=== PATIENT | male | born 2000 | race Caucasian/White ===

== ENCOUNTER 2022-04-04 18:00 | Emergency (ER) | payer MEDICAID, SELFPAY ==
--- NOTE | ~2022-04-04 | XR_ITS ---
EXAMINATION: XR CHEST CLINICAL INFORMATION: Chest pain COMPARISON: None TECHNIQUE: 2 views of the chest were obtained. FINDINGS: No significant abnormality is noted involving the heart, lungs, mediastinum, bony thorax or soft tissues. XR/XR chest 2V IMPRESSION: Unremarkable examination.
[2022-04-04 18:09] VITALS: BP 126/63; BP 141/88; PULSE 60; PULSE 68; RESP 18; TEMP 37; O2SAT 98; BMI 33.0
--- NOTE | 2022-04-04 18:21 | ECG_ITS ---
Test Reason : chest pain Blood Pressure : / mmHG Vent. Rate : 068 BPM Atrial Rate : 068 BPM P-R Int : 146 ms QRS Dur : 086 ms QT Int : 350 ms P-R-T Axes : 042 027 024 degrees QTc Int : 372 ms Normal sinus rhythm with sinus arrhythmia Normal ECG No previous ECGs available Referred By: Leatha Marroquin Electronically Signed By:JOHN NARAYAN
--- NOTE | 2022-04-04 18:21 | ED_ITS ---
HPI - Chest Pain General Chief Complaint: Chest Pain Stated Complaint: chest pain Time Seen by Provider: 04/04/22 18:06 Source: patient and EMS Mode of arrival: EMS Limitations: no limitations History of Present Illness HPI narrative: 21-year-old male presents with substernal chest pain, states that it feels like a bubble inside of his chest. He was evaluated at urgent care earlier today and diagnosed with bronchitis. He was given prednisone to help with the inflammation. Patient does feel short of breath, feels like there is something sitting on his chest. Pain does not radiate, and he does not report any other symptoms. MD complaint: chest heaviness and chest discomfort Onset (ago): day(s) Timing of current episode: episodic Prior episodes: Yes Onset: during rest Pain location: substernal Pain radiation: none Severity: moderate Pain scale (0-10): 6 Quality: tightness Relieving factors: nothing Exacerbating factors: stress Context: recent illness Treatment prior to arrival: none Risk Factors Coronary artery disease risk factors: none Thoracic aortic dissection risk factors: none Related Data Previous Rx's Medication Instructions Recorded hydroxyzine HCl 25 mg tablet 25 mg PO TID PRN anxiety #20 tabs 04/04/22 omeprazole 20 mg capsule,delayed 20 mg PO DAILY 14 days #14 caps 04/04/22 release Allergies Allergy/AdvReac Type Severity Reaction Status Date / Time No Known Allergies Allergy Unverified 12/14/19 17:08 Review of Systems Review of Systems: Constitutional: No Fever, No Chills Cardiovascular: Positive Chest Pain, No SOB Respiratory: No Cough, No Dyspnea Gastrointestinal: No Nausea, No Vomiting, No Diarrhea, No abdominal Pain Genitourinary: No Dysuria, No Hematuria Musculoskeletal: No joint pain, No Myalgias, No Joint Swelling Skin: No Skin lacerations, No rash Neuro: No Weakness, No Numbness, No Paresthesias, No Loss of Consciousness, No Dizziness, No Headache Psych: Positive Anxiety/Panic, No Depression Yes all other systems are reviewed and are negative FOR[facility]LY [facility] Past Medical History Attestation statement: The following information was validated with the patient. Source: old records reviewed Social History Social History Advance Directives: No Advance Directives Information Provided: No Physical Exam Vital Signs: Vital Signs: Last Vital Signs Temp 98.6 F 01/07/23 18:09 Pulse 71 04/04/22 19:41 Resp 16 04/04/22 19:41 BP 123/60 04/04/22 19:41 Pulse Ox 96 04/04/22 19:41 O2 Del Method 04/04/22 18:09 BMI result Body Mass Index 33.0 Appearance: Alert. Oriented X3. No acute distress. Eyes: Pupils equal, round and reactive to light. ENT: Pharynx normal. Neck: Normal inspection. Neck supple. CVS: Normal heart rate and rhythm. Pulses normal. Respiratory: No respiratory distress. Breath sounds normal. Abdomen: Soft and nontender. Skin: Skin warm and dry. Normal skin color. Normal skin turgor. Extremities: No lower extremity edema. Gait well-balanced well coordinated. Neuro: No motor deficit. No sensory deficit. Cranial nerves 2-12 intact. Course Course Course Narrative: 21-year-old male presents via EMS for chest pain, feels like there is a bubble inside of his chest. Does state to have an anxiety problem, and has episodes of vomiting during these panic like anxiety attacks. He was diagnosed with bronchitis earlier today, and given prednisone, which he took the 1st dose several hours prior to arrival to the emergency department. Patient states that he has concerns because he does have a family history of cardiac disease. His grandfather at age 70, but he does not report any sudden a person's younger than 30 in his family. He is not immunocompromised, does not have any congenital heart defects, denies IVDA, and anabolic steroid use. He is not on any chemo therapeutics or hormone treatment. There is a low likelihood of PE, and ACS, will order lab values, chest x-ray, EKG and troponins. Workup is negative. He does have an elevated white count consistent with his diagnosis of bronchitis as well as taking prednisone. I did given Maalox which was effective. I did suggest taking medications for GERD, as well as following up with primary care physician for anxiety. I did give a prescription for hydroxyzine. Patient verbalized understanding of and agrees plan of care discharge home. Verbalized understanding of signs and symptoms indicating need for emergent intervention. Medications Administered Discontinued Medications Generic Name Dose Route Start Last Admin Trade Name Freq PRN Reason Stop Dose Admin Al Hydroxide/Mg Hydroxide 30 ml 04/04/22 18:32 04/04/22 18:50 Magnesium Hydrox/Alum Hydrox 30 Ml Oral.Susp PO 04/04/22 18:33 Not Given ONCE ONE Medical Decision Making Differential Diagnosis Differential Diagnoses: The differential diagnosis associated with the presentation includes ACS, pneumonia, anxiety, GERD Lab Data MDM Lab Attestation statement: I reviewed the patient's lab results. 04/04/22 18:48 04/04/22 18:48 Labs: Lab Results 04/04/22 04/04/22 04/04/22 Range/Units 18:48 18:48 18:48 WBC 14.1 H (4.8-10.8) X10*3/uL RBC 5.37 (4.60-5.80) X10*6/uL Hgb 15.6 (14.0-18.0) g/dl Hct 45.8 (42.0-52.0) % MCV 85.3 (80.0-98.0) fL MCH 29.1 (27.0-33.0) pg MCHC 34.1 (31.0-36.0) g/dl RDW 13.1 (11.0-16.0) % Plt Count 163 (160-400) X10*3/uL MPV 11.5 (9.4-12.4) fL Immature Gran % (Auto) 0.5 H (0.0-0.4) % Neut % (Auto) 91.5 H (45-73) % Lymph % (Auto) 6.6 L (20-40) % [place] % (Auto) 1.2 L (2-11) % Eos % (Auto) 0.1 (0-4) % Baso % (Auto) 0.1 (0-2) % Lymph # (Auto) 0.9 L (1.2-4.9) X10*3/uL [place] # (Auto) 0.2 (0.1-1.2) X10*3/uL Eos # (Auto) 0.0 (0.0-0.4) X10*3/uL Baso # (Auto) 0.0 (0.0-0.2) X10*3/uL Abs Immat Gran (auto) 0.07 H (0.00-0.03) X10*3/uL Absolute Neuts (auto) 12.9 H (2.0-8.3) x10*3/uL Absolute Nucleated RBC 0.000 (0.0-0.012) X10*3/uL Nucleated RBC % (auto) 0.0 (0.0-0.2) /100WBC Sodium 139 (135-145) mmol/L Potassium 4.2 (3.3-5.1) mmol/L Chloride 107 (96-108) mmol/L Carbon Dioxide 23 (22-29) mmol/L Anion Gap 13 (12-20) BUN 15 (9-16) mg/dL Creatinine 1.06 (0.5-1.4) mg/dL Estim Creat Clear Calc 134.4 Estimated GFR > 60 Random Glucose 112 (60-115) mg/dL Calcium 10.0 (8.4-10.2) mg/dL Troponin I High Sens < 3.5 (<3.5-35.0) ng/L Independent Interpretation I performed an independent interpretation of an: EKG and Plain X-Ray Interpretation: Vent. rate 68 BPM PA interval 146 ms QRS duration 86 ms QT/QTc 350/372 ms P-R-T axes 42 27 24 Normal sinus rhythm with sinus arrhythmia Normal ECG No previous ECGs available 04-APR-2022 18:25:36 Radiology Impression Discussion of test interpretation with radiology: I have reviewed the radiologist's reading. Radiologist Impression: CLINICAL INFORMATION: Chest pain COMPARISON: None TECHNIQUE: 2 views of the chest were obtained. FINDINGS: No significant abnormality is noted involving the heart, lungs, mediastinum, bony thorax or soft tissues. XR/XR chest 2V IMPRESSION: Unremarkable examination. Independent Historian Clinical information obtained from an independent historian. History obtained from or confirmed by: Parent External Record Review External record reviewed: Outpatient record Prescription Management I considered prescription management with: Other (Anxiolytics, H2 inhibitor) Discharge Plan Discharge Clinical Impression: Non-cardiac chest pain, Anxiety, Acid reflux Patient Disposition: Home, Self-Care Instructions: Gastroesophageal Reflux Disease (ED), Noncardiac Chest Pain (ED), Anxiety (ED) Additional Instructions: You were evaluated for noncardiac chest pain. The description of your chest pain is consistent with reflux disease. Please consider taking omeprazole once daily for 14 days. Your EKG was normal sinus rhythm. Your cardiac enzymes were 0, you do have an elevated white count of 14 which is consistent with your prior diagnosis that was given to you earlier today for bronchitis and your prescribed dose of prednisone. Please drink plenty of fluids. Your chest x-ray was normal. For anxiety, I prescribed hydroxyzine. Please take this medication as directed. Follow-up with primary care, I have referred you to Dr. Weiss on [address] in [facility]. Thank you for choosing this emergency department for evaluation. Please follow-up with primary care physician as needed. Return to the emergency department for any new, concerning, or worsening symptoms. Prescriptions: New hydroxyzine HCl 25 mg tablet 25 mg PO TID PRN (Reason: anxiety) Qty: 20 0RF omeprazole 20 mg capsule,delayed release(DR/EC) 20 mg PO DAILY 14 Days Qty: 14 0RF Referrals: Marquis Weiss MD [Physician] - 2 weeks (To establish primary care) Interventions: ED Discharge Assessment Last Done: 04/04/22 19:42 Discharge Date/Time: 04/04/22 19:43
[2022-04-04 18:54] LABS: Basophils Percent Auto 0.1 % (0-2); Eosinophils Percent Auto 0.1 % (0-4); Hematocrit 45.8 % (42.0-52.0); Hemoglobin 15.6 g/dl (14.0-18.0); Imm Gran Abs Auto 0.07 X10*3/uL (0.00-0.03); Imm Gran Pct Auto 0.5 % (0.0-0.4); Lymphocytes Absolute Auto 0.9 X10*3/uL (1.2-4.9); Lymphocytes Percent Auto 6.6 % (20-40); MANUAL DIFF FLAG NO; Mean Corpuscular HGB Conc 34.1 g/dl (31.0-36.0); Mean Corpuscular Hemoglobin 29.1 pg (27.0-33.0); Mean Corpuscular Volume 85.3 fL (80.0-98.0); Mean Platelet Volume 11.5 fL (9.4-12.4); Monocytes Absolute Auto 0.2 X10*3/uL (0.1-1.2); Monocytes Percent Auto 1.2 % (2-11); Neutrophils Absolute Auto 12.9 x10*3/uL (2.0-8.3); Neutrophils Percent Auto 91.5 % (45-73); Platelet Count 163 X10*3/uL (160-400); Red Blood Count 5.37 X10*6/uL (4.60-5.80); Red Cell Distribution Width 13.1 % (11.0-16.0); SCAN SMEAR FLAG 1; White Blood Count 14.1 X10*3/uL (4.8-10.8)
--- NOTE | 2022-04-04 18:58 | PC.NURSE ---
Pt returned to room from XR, no needs expressed at this time.
[2022-04-04 19:06] LABS: Anion Gap 13 (12-20); Blood Urea Nitrogen 15 mg/dL (9-16); Carbon Dioxide 23 mmol/L (22-29); Chloride 107 mmol/L (96-108); Creatinine Clr Calc Pharmacy 134.4; Estimated Glomerular Filt Rate > 60; Glucose Random 112 mg/dL (60-115); Potassium 4.2 mmol/L (3.3-5.1); Sodium 139 mmol/L (135-145)
[2022-04-04 19:15] LABS: Troponin-I High Sensitivity < 3.5 ng/L (<3.5-35.0)
[2022-04-04 19:41] VITALS: BP 123/60; PULSE 71; RESP 16; O2SAT 96
== END 2022-04-04 19:43 | disposition home or self-care (01) ==
PROVIDERS: Nurse Practitioner Family; Emergency Provider Emergency Medicine
DX: K21.9 Gastro-esophageal reflux disease without esophagitis (principal); F41.9 Anxiety disorder, unspecified; R07.89 Other chest pain
CPT/HCPCS: 36415; 71046; 80048; 84484; 85025; 93005; 99283

== ENCOUNTER 2022-12-27 13:21 | Emergency (ER) | payer OTHER, SELFPAY ==
--- NOTE | 2022-12-27 13:22 | ECG_ITS ---
Test Reason : CHEST PAIN Blood Pressure : / mmHG Vent. Rate : 065 BPM Atrial Rate : 065 BPM P-R Int : 140 ms QRS Dur : 090 ms QT Int : 358 ms P-R-T Axes : 043 033 021 degrees QTc Int : 372 ms Normal sinus rhythm with sinus arrhythmia Normal ECG When compared with ECG of 04-APR-2022 18:25, No significant change was found Referred By: Pam Pennington Electronically Signed By:LENA RAINEY
[2022-12-27 13:36] VITALS: BP 121/66; PULSE 62; RESP 18; TEMP 36.7; O2SAT 99; BMI 34.0
[2022-12-27 13:42] VITALS: PULSE 55
--- NOTE | 2022-12-27 13:55 | ED_ITS ---
HPI - Chest Pain General Chief Complaint: Chest Pain Stated Complaint: chest pain Time Seen by Provider: 12/27/22 13:36 Source: patient Mode of arrival: ambulatory Limitations: no limitations History of Present Illness HPI narrative: 22 year old male with pmhx significant for GERD, ADHD (not managed with medication) presenting to the ED today with a complaint of acute on chronic intermittent palpitations, chest pain and MAN x 1 year, worsening over the last few days. Admits to traveling [place] the country [place] a couple of months at onset of symptoms last year. States that his left-sided chest pain has been intermittent & his symptoms are brought on with exertion/ climbing stairs. He has been evaluated at multiple medical centers with unremarkable cardiac workups. Patient currently has an order for a Holter monitor from his PCP however has not scheduled an appointment. He is denying chest pain, palpitations and MAN at present. His only complaint is feeling fatigued. Patient's mother attributes this to his lack of sleep and busy schedule. Denies headache, fever, dizziness, cough, neck pain, N/V, abdominal pain, LE swelling/pain. Has been taking prescribed omeprazole for GERD without relief. Patient and patient's mother at bedside deny any sudden deaths in the family. No personal or familial history of cardiac conditions. Related Data Previous Rx's Medication Instructions Recorded hydroxyzine HCl 25 mg tablet 25 mg PO TID PRN anxiety #20 tabs 04/04/22 omeprazole 20 mg capsule,delayed 20 mg PO DAILY 14 days #14 caps 04/04/22 release Allergies Allergy/AdvReac Type Severity Reaction Status Date / Time No Known Allergies Allergy Verified 12/27/22 13:35 Review of Systems 2 Review of Systems: Constitutional: No fever, chills, fatigue, night sweats, weight changes ENT/Mouth: No ear pain, hearing loss, nasal congestion, sinus pain, rhinorrhea, sore throat Eyes: No eye pain, swelling, redness, vision changes, discharge Cardio: + chest pain, + palpitations, + MAN, No orthopnea, peripheral edema Pulm: No SOB, cough, sputum, wheezing, dyspnea, hemoptysis GI: No nausea, vomiting, hematemesis, abdominal pain, diarrhea, constipation, hematochezia, melena : No irregular bleeding, dysuria, frequency, urgency, hesitancy, hematuria, flank pain MSK: No back pain, neck pain, joint pain, myalgias Skin: No lesions, rashes Neuro: No weakness, numbness, paresthesias, LOC, dizziness, headache All other systems reviewed and are negative. [facility] Past Medical History Attestation statement: The following information was validated with the patient. Source: old records reviewed and nursing notes reviewed Social History Social History Alcohol intake: current Alcohol intake frequency: 0-2 drinks per day Smoked in Last 30 Days: No Use of substances other than those prescribed or required for medical reasons: No Advance Directives: No Advance Directives Information Provided: Yes Physical Exam 2 Vital Signs: Vital Signs: Last Vital Signs Temp 98.1 F 12/27/22 13:36 Pulse 62 12/27/22 13:36 Resp 18 12/27/22 13:36 BP 121/66 12/27/22 13:36 Pulse Ox 99 12/27/22 13:36 O2 Del Method Room Air 12/27/22 13:36 BMI result Body Mass Index 34.0 Vital signs are stable Const: General: cooperative, healthy appearing, comfortable, no acute distress, alert and awake Nutritional Appearance: overweight O rientation/consciousness: patient oriented x3 Limitations: no limitations HEENT: Head: Yes normal to inspection Ears: hearing grossly normal bilaterally General nose exam: Normal external nose present Mouth: Normal oral and palatal mucosa present Eyes: General: appearance normal, both eyes and all related structures P upils: Equal, round and reactive pupils present EOM: EOMs intact bilaterally Neck: Neck: Yes normal visual inspection, Yes full ROM, Yes no meningeal signs and Yes supple Thyroid: Thyroid normal Carotids: normal carotid upstroke Lymphatic: no lymphadenopathy noted Chest: Chest palpation & inspection: normal inspection of the chest, normal palpation of entire chest wall, no crepitus, no tenderness and No rash Resp: Effort & Inspection: normal respiratory effort, able to speak in complete sentences, no pursed lip breathing, no respiratory distress, no retractions, no tripod positioning, no use of accessory muscles and symmetric chest movement Auscultation: clear to auscultation bilaterally, no crackles, no rales, no rhonchi and no wheezes Cardio: Rate: regular rate Rhythm: regular rhythm Heart sounds: S1 normal heart sound present, S2 normal heart sound present, no gallops, no murmurs and no rubs Bruits: no abdominal aortic bruits Peripheral pulses: Peripheral pulses 2+ throughout GI: Inspection: Yes normal to inspection and No distended Palpation (GI): N o Abdominal aortic bruit present, Soft to palpation, nontender, no guarding, hepatosplenomegaly present, no pulsatile masses and no aortic enlargement A uscultation: normal bowel sounds Skin: General skin exam: no rashes or lesions noted Neuro: General: patient oriented x3, gait normal, moves all extremities and no meningeal signs Cranial nerves: Yes CN's II-XII intact bilaterally and Yes Equal, round and reactive pupils present Extrem: Other: Negative Homans sign bilaterally. General: Yes normal to inspection and Yes full ROM Course Course Course Narrative: 1508-- EKG showing NSR with a rate of 65 bpm, normal QT, no acute ischemic changes, unchanged when compared to priors. CBC without anemia or leukocytosis. Chemistry without acute electrolyte abnormalities requiring intervention. Lipase wnl. BNP wnl. COVID and influenza negative. 1600-- D-dimer negative. Coags within normal limits. TSH within normal limits. Urine toxicology negative. > discussed lab results with patient and his mother. As lab workup and EKG are unremarkable, I recommend patient go ahead with outpatient Holter monitor to evaluate for arrhythmia. This has been prescribed outpatient PCP and he states he will schedule an appointment for Holter monitor tomorrow morning. Patient not currently having chest pain, SOB or palpitations at present. Complaining of left pectoral soreness/tenderness. Tylenol ordered. At this time I feel comfortable discharging the patient home with Cardiology follow-up. [place] [facility] [place] been [place]. All questions answered at this time. Discussed strict return precautions. Patient and family agreeable with plan. Patient stable for discharge. Medical Decision Making Medical Decision Making MDM Narrative: 22 year old male with pmhx significant for GERD, ADHD (not managed with medication) presenting to the ED today with a complaint of acute on chronic intermittent palpitations, chest pain and dyspnea on exertion x 1 year, worsening over the last few days. VSS. Patient afebrile, not tachycardic or hypoxic. Clinical concern for arrhythmia vs cardiomyopathy. Clinical concern for anxiety vs ADHD vs GERD vs pancreatitis. Unlikely pericarditis, pericardial effusion, cardiac tamponade. Unlikely ACS however will order cardiac enzymes, EKG. Unlikely pulmonary embolism however will order D-dimer. Plan at this time is basic labs, EKG, UDS. Will re-evaluate need for CTA. Differential Diagnosis Differential Diagnoses: The differential diagnosis associated with the presentation includes As above. Admission/Observation Not indicated. Lab Data MDM Lab Attestation statement: I reviewed the patient's lab results. As above. 12/27/22 14:36 12/27/22 14:36 Labs: Lab Results 12/27/22 12/27/22 Range/Units 14:36 15:49 WBC 9.4 (4.8-10.8) X10*3/uL RBC 5.32 (4.60-5.80) X10*6/uL Hgb 16.0 (14.0-18.0) g/dl Hct 46.5 (42.0-52.0) % MCV 87.4 (80.0-98.0) fL MCH 30.1 (27.0-33.0) pg MCHC 34.4 (31.0-36.0) g/dl RDW 12.7 (11.0-16.0) % Plt Count 171 (160-400) X10*3/uL MPV 11.5 (9.4-12.4) fL Immature Gran % (Auto) 0.3 (0.0-0.4) % Neut % (Auto) 68.8 (45-73) % Lymph % (Auto) 22.0 (20-40) % [place] % (Auto) 8.2 (2-11) % Eos % (Auto) 0.5 (0-4) % Baso % (Auto) 0.2 (0-2) % Lymph # (Auto) 2.1 (1.2-4.9) X10*3/uL [place] # (Auto) 0.8 (0.1-1.2) X10*3/uL Eos # (Auto) 0.1 (0.0-0.4) X10*3/uL Baso # (Auto) 0.0 (0.0-0.2) X10*3/uL Abs Immat Gran (auto) 0.03 (0.00-0.03) X10*3/uL Absolute Neuts (auto) 6.5 (2.0-8.3) x10*3/uL Absolute Nucleated RBC 0.000 (0.0-0.012) X10*3/uL Nucleated RBC % (auto) 0.0 (0.0-0.2) /100WBC ESR 2 (0-15) MM/HR PT 13.3 (11.1-13.3) SEC INR 1.1 (0.9-1.1) D-Dimer High Sensitivty < 150 NG/ML Sodium 140 (135-145) mmol/L Potassium 4.2 (3.3-5.1) mmol/L Chloride 104 (96-108) mmol/L Carbon Dioxide 27 (22-29) mmol/L Anion Gap 13 (12-20) BUN 14 (9-16) mg/dL Creatinine 1.01 (0.5-1.4) mg/dL Estim Creat Clear Calc 137.7 Estimated GFR > 60 Random Glucose 94 (60-115) mg/dL Calcium 9.9 (8.4-10.2) mg/dL Magnesium 2.0 (1.6-2.6) mg/dL Total Bilirubin 0.5 (0.0-1.0) mg/dL AST 19 (5-37) U/L ALT 28 (0-40) U/L Alkaline Phosphatase 83 (39-117) U/L Troponin I High Sens < 2.7 (<3.5-35.0) ng/L C-Reactive Protein 0.31 (< or = 0.50) mg/dL B-Natriuretic Peptide 22 (<100) pg/mL Total Protein 7.5 (6.5-8.0) g/dL Albumin 4.5 (3.5-5.0) g/dL Lipase 15 (8-78) U/L TSH 0.86 (0.32-4.0) uIU/mL Urine Opiates Screen Not Detected (Not Detect) Urine Fentanyl Screen Not Detected (Not Detect) Ur Barbiturates Screen Not Detected (Not Detect) Ur Phencyclidine Scrn Not Detected (Not Detect) Ur Amphetamines Screen Not Detected (Not Detect) U Benzodiazepines Scrn Not Detected (Not Detect) Urine Cocaine Screen Not Detected (Not Detect) U Marijuana (THC) Screen Not Detected (Not Detect) COVID-19 ([place]) Negative (Negative) COVID-19 Clin Com See Note Influenza Type A (GABRIELLA) Negative (Negative) Influenza Type B (GABRIELLA) Negative (Negative) Influenza A & B Note See Note Independent Interpretation I performed an independent interpretation of an: EKG Interpretation: EKG with NSR with sinus arrhythmia, QT 358, no ischemic changes, normal EKG when compared to last on 04/04/22. Independent Historian Clinical information obtained from an independent historian. History obtained from or confirmed by: Parent (mother) and Other (significant other) External Record Review External record reviewed: Inpatient record, Office record, Outpatient record, Prior outpatient labs, Prior outpatient radiology, Primary care record, Outside ED record and Other Prescription Management I considered prescription management with: Pain Medication Chronic Conditions Patient?s care impacted by: Other (GERD, ADHD) Critical Care Time Critical Care Time Critical Care Time: No Discharge Plan Discharge Clinical Impression: Atypical chest pain Patient Disposition: Home, Self-Care Instructions: Chest Pain (DC), Chest Wall Pain (ED) Additional Instructions: Your lab work today was reassuring. Your thyroid levels are within normal limits. Your cardiac enzymes are within normal limits. The enzyme that we monitor for pulmonary embolism was negative. Your EKG was normal. 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 This warrants further workup outpatient. You have been provided a referral [place] [facility] [place]. Call them to make an appointment, they will not call you. You may take Tylenol and ibuprofen as needed for chest pain or discomfort. Make sure to rest and not over exert yourself. Please return to the emergency department if you develop new or worsening symptoms. In the case of emergency,. Prescriptions: No Action hydroxyzine HCl 25 mg tablet 25 mg PO TID PRN (Reason: anxiety) Qty: 20 0RF omeprazole 20 mg capsule,delayed release(DR/EC) 20 mg PO DAILY 14 Days Qty: 14 0RF Referrals: [facility] [place] [Provider Group] - 3 days Stand Alone Forms: Work/School Release Interventions: ED Discharge Assessment Last Done: 12/27/22 16:23
[2022-12-27 14:44] LABS: MANUAL DIFF FLAG NO
[2022-12-27 14:47] LABS: Basophils Percent Auto 0.2 % (0-2); Eosinophils Absolute Auto 0.1 X10*3/uL (0.0-0.4); Eosinophils Percent Auto 0.5 % (0-4); Hematocrit 46.5 % (42.0-52.0); Imm Gran Abs Auto 0.03 X10*3/uL (0.00-0.03); Imm Gran Pct Auto 0.3 % (0.0-0.4); Lymphocytes Absolute Auto 2.1 X10*3/uL (1.2-4.9); Mean Corpuscular HGB Conc 34.4 g/dl (31.0-36.0); Mean Corpuscular Hemoglobin 30.1 pg (27.0-33.0); Mean Corpuscular Volume 87.4 fL (80.0-98.0); Mean Platelet Volume 11.5 fL (9.4-12.4); Monocytes Absolute Auto 0.8 X10*3/uL (0.1-1.2); Monocytes Percent Auto 8.2 % (2-11); Neutrophils Absolute Auto 6.5 x10*3/uL (2.0-8.3); Neutrophils Percent Auto 68.8 % (45-73); Platelet Count 171 X10*3/uL (160-400); Red Blood Count 5.32 X10*6/uL (4.60-5.80); Red Cell Distribution Width 12.7 % (11.0-16.0); White Blood Count 9.4 X10*3/uL (4.8-10.8)
[2022-12-27 14:52] LABS: INTERNATIONAL NORM RATIO 1.1 (0.9-1.1); Prothrombin Time 13.3 SEC (11.1-13.3)
[2022-12-27 14:54] LABS: D Dimer High Sensitivity < 150 NG/ML
[2022-12-27 15:01] LABS: Alanine Aminotransferase 28 U/L (0-40); Albumin Level 4.5 g/dL (3.5-5.0); Alkaline Phosphatase 83 U/L (39-117); Anion Gap 13 (12-20); Aspartate Amino Transferase 19 U/L (5-37); Bilirubin Total 0.5 mg/dL (0.0-1.0); Blood Urea Nitrogen 14 mg/dL (9-16); C Reactive Protein 0.31 mg/dL (< or = 0.50); Calcium 9.9 mg/dL (8.4-10.2); Carbon Dioxide 27 mmol/L (22-29); Chloride 104 mmol/L (96-108); Creatinine Clr Calc Pharmacy 137.7; Estimated Glomerular Filt Rate > 60; Glucose Random 94 mg/dL (60-115); Lipase 15 U/L (8-78); Potassium 4.2 mmol/L (3.3-5.1); Sodium 140 mmol/L (135-145); Total Protein 7.5 g/dL (6.5-8.0)
[2022-12-27 15:07] LABS: B Type Natriuretic Peptide 22 pg/mL (<100); COVID-19 Test Negative (Negative); IDNOW Serial# BCCEAD1C
[2022-12-27 15:08] LABS: IDNOW Serial# 9DB6401D; Influenza A Negative (Negative); Influenza B2 Negative (Negative)
[2022-12-27 15:20] LABS: Erythrocyte Sedimentation Rate 2 MM/HR (0-15)
[2022-12-27 15:29] LABS: Troponin-I High Sensitivity < 2.7 ng/L (<3.5-35.0)
[2022-12-27 16:02] LABS: Amphetamine Screen Urine Not Detected (Not Detect); Barbiturates, Urine Not Detected (Not Detect); Benzodiazepines Screen Urine Not Detected (Not Detect); Cannabinoid Screen Urine Not Detected (Not Detect); Cocaine Screen Urine Not Detected (Not Detect); Fentanyl, urine Not Detected (Not Detect); Opiate Screen Urine Not Detected (Not Detect); Phencyclidine Screen Urine Not Detected (Not Detect)
[2022-12-27 16:03] LABS: TSH reflex Free T4 0.86 uIU/mL (0.32-4.0)
[2022-12-27] MEDS: Acetaminophen 325 MG TABLET 975 MG PO (16:19)
== END 2022-12-27 16:23 | disposition home or self-care (01) ==
PROVIDERS: Physician Assistant Medical; Emergency Provider Emergency Medicine
DX: R07.89 Other chest pain (principal); R06.02 Shortness of breath; Z20.822 Contact with and (suspected) exposure to COVID-19; Z20.828 Contact with and (suspected) exposure to other viral communicable diseases; Z79.899 Other long term (current) drug therapy
CPT/HCPCS: 36415; 80053; 80307; 83690; 83735; 83880; 84443; 84484; 85025; 85379; 85610; 85652; 86140; 87502; 87635; 93005; 99284